=== PATIENT | female | born 1965 | race Hispanic/Latino ===

== ENCOUNTER 2023-08-30 08:54 | Day surgery (SDC) | payer BC ==
[2023-08-27 10:49] LABS: Hematocrit 41.2 % (36.0-45.0); MCH 31.3 pg (27.0-35.0); MCHC 34.1 g/dL (32.0-36.0); MCV 91.8 fL (80-100); Platelets 331 thou/uL (152-406); RBC Red Blood Cell Count 4.48 M/uL (3.86-4.86)
[2023-08-27 10:50] LABS: Absolute Eosinophils 0.1 K/uL (0-0.5); Absolute Lymphocytes (CBC) 1.9 K/uL (0.7-4.9); Absolute Monocytes 0.3 K/uL (0.1-1.3); Absolute Neutrophil 2.5 K/uL (1.8-8.0); Basophils % 0.6 % (0-1.3); Eosinophils % 1.9 % (0-4.4); Lymphocytes % 38.6 % (15.3-44.8); MPV 8.3 fL (7.6-11.3); Monocytes % 6.1 % (3.3-12.3); Neutrophils % 52.8 % (41.7-73.7); Nucleated Red Blood Cells % 0.1 % (0-0); Red Cell Distribution Width 13.6 % (12.1-15.2)
[2023-08-27 10:53] LABS: PTT, Activated Partial Thromb 38.2 SECONDS (24.3-36.9)
[2023-08-27 10:57] LABS: Anion Gap 6.8 mEq/L (5.0-15.0); Potassium 3.8 mEq/L (3.5-5.1)
[2023-08-30] MEDS ORDERED: FENTANYL CITR 100 MCG/2 ML ONE (09:07)
[2023-08-30] MEDS ORDERED: MIDAZOLAM HCL 2 MG/2 ML INJ ONE (09:08)
[2023-08-30] MEDS ORDERED: EPINEPHRINE 1 MG/ML VIAL ONE (09:08)
[2023-08-30] MEDS ORDERED: dexAMETHasone 4 MG/ML VIAL ONE (09:08)
[2023-08-30] MEDS: Ringers Lactate 1,000 ML IV ONE ×2 (09:15→11:44)
[2023-08-30] MEDS ORDERED: LIDOCAINE 1% MPF 5 ML VIAL ONE (10:01)
[2023-08-30] MEDS ORDERED: ROCURONIUM 50 MG/5 ML VIAL IV ONE (10:01)
[2023-08-30] MEDS ORDERED: propofoL 200 MG/20 ML VIAL IV ONE (10:01)
[2023-08-30] MEDS ORDERED: ONDANSETRON 4 MG/2 ML VIAL ONE (10:01)
[2023-08-30] MEDS: CEFAZOLIN SODIUM 1 GM/VIAL ONE (10:25)
[2023-08-30] MEDS ORDERED: EPHEDRINE SULF 50 MG/ML VIAL ONE (10:35)
[2023-08-30] MEDS: EPINEPHRINE 1 MG/ML VIAL ONE ×2 (10:57)
[2023-08-30] MEDS: TRIAMCINOLONE ACETON 40 MG/ML VIAL ONE (11:35)
--- NOTE | 2023-08-30 11:58 | P.BOP ---
Preoperative diagnosis: left shoulder rotator cuff tear Postoperative diagnosis: same, left shoulder adhesive capsulitis Primary procedure: left shoulder arthroscopic rotator cuff repair Secondary procedure: left shoulder arthroscopic lysis of adhesions Other procedure(s): left shoulder intaarticular kenalog injection Bank Secrecy Act Officer: NONE,NONE Estimated blood loss: 5 cc Specimen: none Findings: see dictation Anesthesia: General Complications: None Implants: 1- 4.75 mm arthrex swivelock Fluids & blood products: per anesthesia record Transferred to: Recovery Room Condition: Good
--- NOTE | 2023-08-30 12:43 | RAD REPORT ---
EXAM DESCRIPTION: RAD - Shoulder 1 View - 08/30/2023 12:32 pm CLINICAL HISTORY: shoulder surgery FINDINGS: Frontal view of the shoulder was obtained. No fracture or dislocation is seen. Mild joint space narrowing involves the acromioclavicular joint.
[2023-08-30 13:45] VITALS: BP 117/53; TEMP 97; O2SAT 99
--- NOTE | 2023-08-31 08:09 | P.OP ---
Preoperative diagnosis: Left shoulder rotator cuff tear Postoperative diagnosis: Same, left shoulder adhesive capsulitis Primary procedure: left shoulder arthroscopic rotator cuff repair Secondary procedure: left shoulder arthroscopic lysis of adhesions Other procedure(s): left shoulder intaarticular kenalog injection Anesthesia: General Estimated blood loss: 5 cc Specimen: None Findings: see dictation Operative Technique: Indication For Procedure: The patient is a 58-year-old female who presented to my clinic with signs, symptoms, and MRI findings consistent with a left shoulder rotator cuff tear. The patient had failed conservative treatment measures including corticosteroid injections. She had recently undergone a rotator cuff debridement however she had a new injury with increased pain. New MRI demonstrated a larger partial thickness rotator cuff tear. I discussed with the patient risks and benefits associated with operative and nonoperative treatment. She expressed understanding and elected to proceed with operative treatment. Description Of Procedure: After informed consent was obtained, the patient was identified in the preoperative holding area. The left upper extremity was marked. The patient then was brought to the PACU where she underwent a left- sided interscalene block performed by Anesthesia. The patient was brought back to the operating room, transferred to the operative table in supine fashion, placed under general endotracheal anesthesia. She was then placed in a beach chair position with his extremities well padded. The left upper extremity was then prepped and draped in usual sterile fashion. A time-out was initiated. The correct patient and procedure were performed and identified. The patient did receive preoperative prophylactic antibiotics. Via the posterior portal position, a spinal needle was introduced in the glenohumeral joint and the shoulder was injected with 30 cc of normal saline to distend the capsule. A stab incision was made posteriorly and a posterior portal was created. Arthroscope was brought in via the posterior portal position and diagnostic a rthroscopy was performed. Under direct visualization, an anterior portal and cannula were created. There was extensive inflammation and hyperemia of the tissue within the joint consistent with adhesive capsulitis. A radiofrequency ablator and arthroscopic shaver were used to proceed with lysis of adhesions of the rotator interval as well as anterior-inferior capsule. Subscapularis was found to be stable and intact to probe. There were no loose bodies within the axillary pouch. The articular surface of the supraspinatus was found to be intact. The arthroscope was then brought in the subacromial space. A subacromial bursectomy was performed using arthroscopic shaver. The patient was noted to have a mid near full-thickness tear of the supraspinatus. Fibertape sutures were then passed through the rotator cuff tear in anterior-posterior fashion in an inverted horizontal mattress fashion. The suture lines were then brought together and a single lateral Arthrex SwiveLock anchors was placed for reduction onto the greater tuberosity of the rotator cuff tendon. The remaining suture limbs were then cut. Arthroscopic bur was then used to debride the undersurface of the acromion. Arthroscopic instruments were then removed without complication. 40 mg of Kenalog was injected to the shoulder given her significant inflammation to aid with her adhesive capsulitis symptoms. Wounds were then irrigated thoroughly with normal saline. Subcutaneous tissue was approximated using a 2-0 Vicryl. Portals were approximated using a 3-0 Monocryl. Sterile dressings were applied. Shoulder immobilizer was placed. The patient was awakened and transferred to PACU in stable condition. Postoperative Plan: The patient will be nonweightbearing in a shoulder immobilizer for 6 weeks. We will follow the medium rotator cuff repair protocol 3 weeks postoperatively. Complications: None Implants: 4.75 mm Arthrex swivel lock Fluids & blood products: Per anesthesia record Transferred to: Recovery Room Condition: Good
== END 2023-08-30 13:25 | disposition home or self-care (01) ==
LOC: OR 08:54
PROVIDERS: ATTEND Orthopaedic Surgery Sports Medicine
PROC: 0RNK4ZZ Release Left Shoulder Joint, Percutaneous Endoscopic Approach (ICD-10-PCS; 2023-08-30)
PROC: 3E0U33Z Introduction of Anti-inflammatory into Joints, Percutaneous Approach (ICD-10-PCS; 2023-08-30)
PROC: 0LM24ZZ Reattachment of Left Shoulder Tendon, Percutaneous Endoscopic Approach (ICD-10-PCS; principal; 2023-08-30 10:45)
DX: M75.102 Unspecified rotator cuff tear or rupture of left shoulder, not specified as traumatic (principal); M75.02 Adhesive capsulitis of left shoulder
CPT/HCPCS: 85025; 80048; 36415; 85610; 85730; 73020; 29827; 29825; 20610; J2704; J1100; J3301; J2001; J2250; J3010; J0171 ×3; J2405; J7120 ×2; J0690